=== PATIENT | female | born 1995 | race African-American/Black ===

== ENCOUNTER 2020-08-25 09:31 | Day surgery (SDC) | payer BC ==
[2020-08-25 10:11] VITALS: BMI 32.5
[2020-08-25] MEDS ORDERED: hydrALAZINE 20 MG/ML VIAL SLOW IVP PRN (11:20)
== END 2020-08-25 13:30 | disposition home or self-care (01) ==
LOC: CSHLD/OP 09:31
PROVIDERS: ATTEND Student in an Organized Health Care Education/Training Program
DX: O47.03 False labor before 37 completed weeks of gestation, third trimester (principal); O99.013 Anemia complicating pregnancy, third trimester; D64.9 Anemia, unspecified; O09.293 Supervision of pregnancy with other poor reproductive or obstetric history, third trimester; Z3A.36 36 weeks gestation of pregnancy
CPT/HCPCS: 99283

== ENCOUNTER 2020-08-30 10:08 | Inpatient (IN) | payer BC ==
[~2020-08-30 10:08] MED LIST: valACYclovir 500 MG TAB PO SCH
[2020-08-30] MEDS ORDERED: hydrALAZINE 20 MG/ML VIAL SLOW IVP PRN ×3 (10:39→16:34)
[2020-08-30 10:42] VITALS: BMI 32.7
[2020-08-30] MEDS ORDERED: Bicitra 30 ML UDCUP PO PRN (11:32)
[2020-08-30] MEDS ORDERED: Ondansetron PF 4 MG/2 ML Vial IVP PRN ×2 (11:32→14:24)
[2020-08-30] MEDS ORDERED: Promethazine HCl 25 MG/ML VIAL IM PRN ×2 (11:32→14:24)
[2020-08-30] MEDS ORDERED: Famotidine/PF 20 mg/2ml Vial SLOW IVP PRN (11:32)
[2020-08-30 11:36] LABS: Amnisure Test No Membranes Rupture (No Rupture)
[2020-08-30] MEDS ORDERED: CEFAZOLIN 2 GM in Premix Bag 1 BAG IVPB SCH (11:45)
[2020-08-30] MEDS ORDERED: Lactated Ringer's 1,000 ML IV SCH (11:45)
[2020-08-30 12:22] LABS: Hemoglobin 12.4 g/dL (12.0-15.5); Mean Corpuscular HGB CONC 32.5 g/dL (32.0-36.0); Mean Corpuscular Hemoglobin 27.6 pg (27.0-33.0); Mean Corpuscular Volume 85.1 fl (81.6-98.3); Platelet Count 257 10x3/uL (150-450); RBC Distribution Width 15.1 % (11.5-14.5); Red Blood Cell (RBC) Count 4.49 10x6/uL (3.90-5.03); White Blood Cell (WBC) Count 9.4 10x3/uL (3.5-10.5)
[2020-08-30] MEDS ORDERED: Morphine PF 10 MG/10 ML VIAL ONE (12:36)
[2020-08-30] MEDS ORDERED: Fentanyl 100 MCG/2 ML VIAL ONE (12:36)
[2020-08-30] MEDS ORDERED: PHENYLEPHRINE-NS 100 MCG/ML 10 ML SYRINGE ONE (12:37)
[2020-08-30] MEDS ORDERED: Midazolam HCl 2 mg/2 ml Vial ONE (12:37)
[2020-08-30 12:48] LABS: Syphilis Antibody Nonreactive (Nonreactive); Syphilis Antibody Index 0.04 S/CO (<1.00 Non-Reactive)
[2020-08-30 12:49] LABS: Hep B Surf Ag Non-Reactive S/CO (NonReactive)
[2020-08-30] MEDS ORDERED: Oxytocin 10 UNITS/ML VIAL ONE (13:07)
[2020-08-30] MEDS ORDERED: Ketorolac Tromethamine 30 MG/ML VIAL ONE (13:07)
[2020-08-30] MEDS ORDERED: Ondansetron PF 4 MG/2 ML Vial ONE (13:08)
[2020-08-30 13:12] LABS: HBSAg Index 0.14 S/CO (0-0.99)
[2020-08-30] MEDS ORDERED: Naloxone HCl 0.4 mg/ml Vial IV PRN (14:24)
[2020-08-30] MEDS ORDERED: diphenhydrAMINE 50 MG/ML VIAL IVP PRN (14:24)
[2020-08-30] MEDS ORDERED: Promethazine HCl 25 MG SUPP PR PRN (14:24)
[2020-08-30] MEDS ORDERED: Naloxone HCl 0.4 mg/ml Vial IVP PRN ×2 (14:24)
[2020-08-30] MEDS ORDERED: L&D-Morphine 4 MG/ML VIAL SLOW IVP PRN (14:25)
[2020-08-30] MEDS ORDERED: HYDROmorphone 2 MG/ML VIAL SLOW IVP PRN (14:25)
[2020-08-30] MEDS ORDERED: Meperidine HCl/PF 25 MG/ML VIAL SLOW IVP PRN (14:25)
[2020-08-30] MEDS ORDERED: Ondansetron HCl/PF 4 MG/2 ML Vial IVP PRN (14:25)
[2020-08-30] MEDS ORDERED: Ketorolac Tromethamine 30 MG/ML VIAL IVP SCH (14:30)
[2020-08-30] MEDS ORDERED: Communication Order-Pharmacy FS SCH (14:30)
[2020-08-30] MEDS ORDERED: valACYclovir 500 MG TAB PO SCH (14:45)
[2020-08-30] MEDS ORDERED: diphenhydrAMINE 50 MG/ML VIAL ONE ×3 (15:18→15:22)
[2020-08-30] MEDS ORDERED: Naloxone HCl 0.4 mg/ml Vial ONE ×5 (15:18→15:22)
[2020-08-30] MEDS ORDERED: Bisacodyl 10 MG SUPP PR PRN (16:34)
[2020-08-30] MEDS ORDERED: Lanolin Ointment 7 GM TUBE TOP PRN (16:34)
[2020-08-30] MEDS ORDERED: NS w/ Oxytocin 30 units 500 ML IV SCH (16:45)
[2020-08-30 21:24] LABS: SARS-CoV-2 PCR by NAA Not Detected (NotDetected)
[2020-08-30] MEDS: Ketorolac Tromethamine 30 MG/ML VIAL IVP PRN (23:45)
[2020-08-30] MEDS: Ferrous Sulfate 325 MG TAB PO SCH (23:46)
[2020-08-30] MEDS: Docusate Calcium (SURFAK) 240 MG CAP PO SCH (23:46)
[2020-08-31] MEDS: Ketorolac Tromethamine 30 MG/ML VIAL IVP PRN (06:55)
[2020-08-31] MEDS: Ferrous Sulfate 325 MG TAB PO SCH ×2 (08:50→19:06)
[2020-08-31] MEDS: Docusate Calcium (SURFAK) 240 MG CAP PO SCH ×2 (08:50→21:56)
[2020-08-31] MEDS: HYDROcodone/Acetaminophen 5/325 mg Tablet PO PRN ×4 (08:50→21:56)
[2020-08-31] MEDS: Prenatal Vitamin 1 TAB PO SCH (08:50)
[2020-08-31] MEDS ORDERED: Adacel (T-DAP) 0.5 ML SYRINGE IM ONE (09:00)
[2020-08-31] MEDS ORDERED: Measles/Mumps/Rubella 10 MCG/0.5 ML VIAL SC ONE (09:00)
[2020-08-31] MEDS ORDERED: Varicella virus, LIVE 0.5 ML VIAL SC ONE (09:00)
[2020-08-31] MEDS: valACYclovir 500 MG TAB PO SCH (12:28)
[2020-08-31] MEDS: Ibuprofen 800 MG TAB PO SCH (21:55)
[2020-09-01] MEDS: HYDROcodone/Acetaminophen 5/325 mg Tablet PO PRN ×5 (02:55→20:57)
[2020-09-01] MEDS: Ibuprofen 800 MG TAB PO SCH ×3 (05:42→20:56)
[2020-09-01] MEDS: Ferrous Sulfate 325 MG TAB PO SCH ×2 (08:03→19:51)
[2020-09-01] MEDS: Prenatal Vitamin 1 TAB PO SCH (09:06)
[2020-09-01] MEDS: Simethicone Chewable 80 MG TAB PO PRN ×2 (09:06→14:02)
[2020-09-01] MEDS: Docusate Calcium (SURFAK) 240 MG CAP PO SCH ×2 (09:06→20:56)
[2020-09-01] MEDS: valACYclovir 500 MG TAB PO SCH (09:09)
[2020-09-02] MEDS: HYDROcodone/Acetaminophen 5/325 mg Tablet PO PRN ×3 (02:00→13:34)
[2020-09-02] MEDS: Ibuprofen 800 MG TAB PO SCH ×2 (04:27→13:34)
[2020-09-02 07:40] VITALS: BP 103/55; TEMP 97.9
[2020-09-02] MEDS: Ferrous Sulfate 325 MG TAB PO SCH (08:21)
[2020-09-02] MEDS: valACYclovir 500 MG TAB PO SCH (08:23)
[2020-09-02] MEDS: Docusate Calcium (SURFAK) 240 MG CAP PO SCH (08:23)
[2020-09-02] MEDS: Prenatal Vitamin 1 TAB PO SCH (08:23)
[2020-09-02] MEDS ORDERED: Measles/Mumps/Rubella 10 MCG/0.5 ML VIAL SC ONE (11:30)
== END 2020-09-02 16:40 | disposition home or self-care (01) | DRG 788 ==
LOC: CSHLD/OP 10:08 → CSHLD 13:33 → CSHPP 16:36
PROVIDERS: ADMIT Student in an Organized Health Care Education/Training Program; ATTEND Student in an Organized Health Care Education/Training Program
PROC: 10D00Z1 Extraction of Products of Conception, Low, Open Approach (ICD-10-PCS; principal; 2020-08-30)
DX: O98.32 Other infections with a predominantly sexual mode of transmission complicating childbirth (principal); A60.09 Herpesviral infection of other urogenital tract; Z20.822 Contact with and (suspected) exposure to COVID-19; Z3A.37 37 weeks gestation of pregnancy; Z37.0 Single live birth; O99.824 Streptococcus B carrier state complicating childbirth; D50.9 Iron deficiency anemia, unspecified; O99.02 Anemia complicating childbirth; Z23 Encounter for immunization; Z79.899 Other long term (current) drug therapy
CPT/HCPCS: 51702; 84112; 85027; 86780; 86850; 86900; 86901; 87340; 87635; 90707; 99285; J0690; J1200; J1885; J2250; J2270; J2310; J2405; J3010; U0003; U0005

== ENCOUNTER 2021-05-28 09:37 | Emergency (ER) | payer BC ==
[2021-05-28] MEDS ORDERED: Ketorolac Tromethamine 30 MG/ML VIAL ONE (11:38)
== END 2021-05-28 11:57 | disposition home or self-care (01) ==
LOC: CSHERS 09:37
DX: M25.561 Pain in right knee (principal)
CPT/HCPCS: 96372; 99283; J1885